=== PATIENT | male | born 2005 | race Caucasian/White ===

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

== ENCOUNTER 2024-09-30 14:35 | Emergency (ER) | payer OTHER ==
[~2024-09-30] VITALS: Ht 182.9 cm; Wt 99.8 kg
== END 2024-09-30 17:12 | disposition home or self-care (01) ==
LOC: ER 14:37 → EMR PED 14:42
DX: R21 Rash and other nonspecific skin eruption (principal); J45.909 Unspecified asthma, uncomplicated

== ENCOUNTER 2024-12-17 16:49 | Emergency (ER) | payer OTHER ==
[~2024-12-17] VITALS: Ht 182.9 cm; Wt 101.6 kg
[2024-12-17] MEDS ORDERED: BUDESONIDE 0.5 MG/2 ML AMPUL.NEB IH STA (17:26)
[2024-12-17] MEDS ORDERED: METHYLPREDNISOLONE SOD SUCC 40 MG VIAL IV STA (17:27)
[2024-12-17] MEDS ORDERED: ALBUTEROL SULFATE 3 ML/2.5 MG AMPUL.NEB IH SCH (17:30)
[2024-12-17] MEDS ORDERED: METHYLPREDNISOLONE SOD SUCC 40 MG VIAL ONE (17:38)
[2024-12-17 17:57] LABS: HEMATOCRIT 50.9 % (39.0-48.0); HEMOGLOBIN 17.5 g/dL (13-16.00); MEAN CORPUSCULAR HEMOGLOBIN 30.9 pg (27.00-32.0); MEAN CORPUSCULAR HGB CONC 34.3 g/dl (32.0-36.0); PLATELET COUNT 187 K/uL (150-450); RED BLOOD COUNT 5.66 M/uL (4.00-6.00); RED CELL DISTRIBUTION WIDTH 13.1 % (11.5-14.5)
[2024-12-17] MEDS ORDERED: ALBUTEROL SULFATE 3 ML/2.5 MG AMPUL.NEB IH ONE (19:49)
[2024-12-17] MEDS ORDERED: BUDESONIDE 0.5 MG/2 ML AMPUL.NEB IH ONE (19:49)
== END 2024-12-17 21:05 | disposition home or self-care (01) ==
LOC: ER 16:50 → EMR PED 16:50 → ER 16:51 → EMR PED 21:05
DX: B34.9 Viral infection, unspecified (principal); J98.01 Acute bronchospasm; R53.81 Other malaise; Z20.822 Contact with and (suspected) exposure to COVID-19

== ENCOUNTER 2025-06-02 02:15 | Emergency (ER) | payer OTHER ==
[~2025-06-02] VITALS: Ht 182.9 cm; Wt 95.3 kg
[2025-06-02] MEDS ORDERED: CLINDAMYCIN PHOSPHATE 150 MG/ML (600mg) IM STA (04:03)
[2025-06-02] MEDS ORDERED: KETOROLAC TROMETHAMINE 60 MG VIAL IM STA (04:04)
== END 2025-06-02 04:22 | disposition home or self-care (01) ==
LOC: ER 02:23 → EMR PED 02:23
DX: J06.9 Acute upper respiratory infection, unspecified (principal)

== ENCOUNTER 2025-06-02 13:21 | Inpatient (IN) | payer OTHER ==
[~2025-06-02] VITALS: Ht 180.3 cm; Wt 92.5 kg
[2025-06-02] MEDS ORDERED: VANCOMYCIN HCL 1,000 MG VIAL IV SCH (14:37)
[2025-06-02] MEDS ORDERED: 0.9 % SODIUM CHLORIDE 1,000 ML IV SCH (14:45)
[2025-06-02] MEDS ORDERED: RINGERS SOLUTION,LACTATED 1,000 ML IV ONE (14:45)
[2025-06-02 15:01] LABS: BASO % 0.5 % (0.1-1.2); EOS # 0.01 (0.04-0.54); EOS % 0.1 % (0.7-7.0); LYMPH # 0.75 (1.18-3.74); LYMPH % 8.8 % (19.3-53.1); MEAN PLATELET VOLUME 10.30 fl (9.4-12.4); MONO # 1.01 (0.24-0.82); MONO % 11.8 % (4.7-12.5); NEUT # 6.68 (1.56-6.13); NEUT % 78.3 % (34.0-71.1); RED CELL DISTRIBUTION WIDTH 13.3 % (11.6-14.4)
[2025-06-02 15:39] LABS: URINE APPEARANCE Cloudy; URINE BILIRRUBIN Small (NEGATIVE); URINE BLOOD Negative; URINE COLOR Dark Yellow; URINE GLUCOSE Negative (NEGATIVE); URINE KETONE Trace (NEGATIVE); URINE LEUKOCYTE Negative; URINE NITRATE Negative; URINE UROBILINOGEN 1.0 E.U./dl
[2025-06-02 15:43] LABS: URINE BACTERIA 20.3 uL (0.0-1933); URINE CAST 3.66 uL (0.0-1.40); URINE EPITHELIAL CELLS 25.0 uL (0.0-38.8); URINE RBC 13.3 uL (0.0-20.8); URINE WBC 9.9 uL (0.0-23.2)
[2025-06-02 15:56] LABS: ALT/SGPT 48.0 U/L (12-78); AST/SGOT 30.0 U/L (15-37); BILIRUBIN TOTAL 0.96 mg/dL (0.3-1.2); BUN CREA RATIO 15.0 (7.0-25.0); CREATININE SERUM 1.08 mg/dL (0.70-1.30); GFR 87.17; GLOBULINA 4.1 G/DL (2.4-3.5); GLUCOSE FASTING 85.0 mg/dL (65-100); OSMOLALITY SERUM 278.0 MOSM/KG (275-295)
[2025-06-02 15:57] LABS: URINE PROTEIN 100 (NEGATIVE)
[2025-06-02 16:04] LABS: COVID-19 AG NEGATIVE (NEGATIVE)
[2025-06-02 16:06] LABS: URINE MUCUS HEAVY
[2025-06-02] MEDS ORDERED: FAMOTIDINE/PF 20 MG/2 ML VIAL IV SCH (17:02)
[2025-06-02] MEDS ORDERED: OSELTAMIVIR PHOSPHATE 75 MG CAPSULE PO SCH (17:02)
[2025-06-02 17:20] VITALS: BP 113/63
[2025-06-02 17:30] VITALS: BP 113/63; O2SAT 100
[2025-06-02 18:40] VITALS: BP 115/62; O2SAT 98
[2025-06-02] MEDS ORDERED: ACETAMINOPHEN 500 MG GEL..CAP PO SCH (18:57)
[2025-06-02] MEDS ORDERED: AZITHROMYCIN 500 MG VIAL IV SCH (21:45)
[2025-06-03] VITALS: BP 101/63; O2SAT 95
[2025-06-03 08:31] VITALS: BP 106/67; O2SAT 97
[2025-06-03] MEDS ORDERED: VANCOMYCIN HCL 1,000 MG VIAL IV SCH (09:00)
[2025-06-03] MEDS ORDERED: OSELTAMIVIR PHOSPHATE 75 MG CAPSULE PO SCH (09:00)
[2025-06-03 15:41] VITALS: BP 119/71; O2SAT 98
[2025-06-03] MEDS ORDERED: AZITHROMYCIN 500 MG VIAL IV SCH (17:00)
[2025-06-04] VITALS: BP 115/62; O2SAT 97
[2025-06-04 06:46] LABS: BASO % 0.8 % (0.1-1.2); EOS # 0.03 (0.04-0.54); EOS % 0.8 % (0.7-7.0); LYMPH # 1.96 (1.18-3.74); LYMPH % 49.0 % (19.3-53.1); MEAN PLATELET VOLUME 11.00 fl (9.4-12.4); MONO # 0.72 (0.24-0.82); NEUT # 1.24 (1.56-6.13); NEUT % 30.9 % (34.0-71.1); RED CELL DISTRIBUTION WIDTH 13.4 % (11.6-14.4)
[2025-06-04 07:04] LABS: ALT/SGPT 42.0 U/L (12-78); AST/SGOT 26.0 U/L (15-37); BILIRUBIN TOTAL 0.39 mg/dL (0.3-1.2); BUN CREA RATIO 15.0 (7.0-25.0); CREATININE SERUM 0.67 mg/dL (0.70-1.30); GFR 151.23; GLOBULINA 2.8 G/DL (2.4-3.5); GLUCOSE FASTING 121.0 mg/dL (65-100); OSMOLALITY SERUM 282.0 MOSM/KG (275-295)
[2025-06-04 07:05] LABS: MONO % 18.0 % (4.7-12.5)
[2025-06-04 08:38] VITALS: BP 120/68; O2SAT 97
[2025-06-04 16:00] VITALS: BP 111/72; O2SAT 98
[2025-06-04] MEDS ORDERED: ALBUTEROL SULFATE 3 ML/2.5 MG AMPUL.NEB IH SCH (16:00)
[2025-06-04] MEDS ORDERED: BUDESONIDE 0.5 MG/2 ML AMPUL.NEB IH SCH (21:00)
[2025-06-05] VITALS: BP 101/74; O2SAT 98
[2025-06-05 08:04] VITALS: BP 114/73; O2SAT 97
[2025-06-05 08:46] LABS: BASO % 0.2 % (0.1-1.2); EOS # 0.01 (0.04-0.54); EOS % 0.2 % (0.7-7.0); LYMPH # 2.45 (1.18-3.74); LYMPH % 48.8 % (19.3-53.1); MEAN PLATELET VOLUME 10.30 fl (9.4-12.4); MONO # 0.53 (0.24-0.82); MONO % 10.6 % (4.7-12.5); NEUT # 2.01 (1.56-6.13); NEUT % 40.0 % (34.0-71.1); RED CELL DISTRIBUTION WIDTH 13.3 % (11.6-14.4)
[2025-06-05 12:30] VITALS: BP 115/77; O2SAT 99
[2025-06-05 15:31] VITALS: BP 121/77; O2SAT 99
[2025-06-05] MEDS ORDERED: VANCOMYCIN HCL 1,000 MG VIAL IV SCH (17:00)
[2025-06-06] VITALS: BP 124/73; O2SAT 99
[2025-06-06 08:00] VITALS: BP 120/73; O2SAT 99
[2025-06-06 15:25] VITALS: BP 112/68; O2SAT 100
== END 2025-06-06 15:27 | disposition home or self-care (01) | DRG 195 ==
LOC: EMR PED 13:52 → PED 17:16
PROVIDERS: Emergency Medicine Pediatric Emergency Medicine; ADMIT Emergency Medicine; ATTEND Emergency Medicine
PROC: 8E0ZXY6 Isolation (ICD-10-PCS; 2025-06-02)
PROC: B922ZZZ Computerized Tomography (CT Scan) of Paranasal Sinuses (ICD-10-PCS; 2025-06-03)
PROC: 3E0F7GC Introduction of Other Therapeutic Substance into Respiratory Tract, Via Natural or Artificial Opening (ICD-10-PCS; principal; 2025-06-04)
DX: J10.1 Influenza due to other identified influenza virus with other respiratory manifestations (principal); B96.0 Mycoplasma pneumoniae [M. pneumoniae] as the cause of diseases classified elsewhere; S00.83XA Contusion of other part of head, initial encounter; W20.8XXA Other cause of strike by thrown, projected or falling object, initial encounter; Y92.828 Other wilderness area as the place of occurrence of the external cause